=== PATIENT | female | born 1960 | race Caucasian/White ===

== ENCOUNTER 2025-01-08 08:45 | Outpatient (RCR) | payer MEDICARE, BC, SELFPAY ==
--- NOTE | 2024-07-12 13:15 | URNOTE ---
Request received for authorization for Cisplatin (J9060) , Emend (J1453), Aloxi (J2469). Prior authorization is not required pt carries Medicare primary and active [employer] [place] plan services are based on medical necessity and follow Medicare guidelines.
[2024-07-16 08:25] LABS: Hematocrit 43.6 % (33.0-51.0); Hemoglobin* 14.1 gm/dL (12.0-16.0); Immature Granulocytes Pct Auto 0.2 %; Mean Corpuscular HGB Conc 32 gm/dL (32-36); Mean Corpuscular Hemoglobin 32 pg (26-34); Mean Corpuscular Volume 97 fL (80-100); RDW Coefficient of Variation % 15.8 % (11.5-15.5); Red Blood Count 4.48 m/uL (4.00-5.20); White Blood Count* 11.50 K/uL (4.50-11.00)
[2024-07-16 08:32] LABS: Immature Granulocytes Abs Auto 0.00 K/uL (0.00-0.30); Lymphocytes Absolute Auto 1.30 K/uL (0.90-2.90); Slide Review Reflex No
[2024-07-16 08:37] LABS: Albumin* 4.3 g/dL (3.3-5.0); Chloride* 103 mmol/L (96-114)
[2024-07-16 08:38] LABS: Potassium* 4.1 mmol/L (3.6-5.1); Sodium* 139 mmol/L (135-149)
[2024-07-16 08:40] LABS: Alanine Aminotransferase* 34 U/L (4-35); Alkaline Phosphatase* 33 U/L (40-150); Anion Gap 7 mEq/L (7-15); Aspartate Amino Transferase* 32 U/L (12-35); Bilirubin Total* 0.8 mg/dL (0.1-1.5); Blood Urea Nitrogen* 28 mg/dL (7-30); Calcium* 10.2 mg/dL (8.4-10.6); Carbon Dioxide* 29 mmol/L (20-32); Creatinine* 0.4 mg/dL (0.5-1.5); Est. Creatinine Clearance* 45.78; Estimated Glomerular Filt Rate 110 ml/min; Glucose* 97 mg/dL (60-115); Total Protein* 6.5 g/dL (6.0-8.3)
[2024-07-16 09:42] LABS: TSH With Reflex to FT4* 1.400 uIU/mL (0.270-4.200)
[2024-07-16 10:13] VITALS: BP 140/85; PULSE 98; RESP 16; TEMP 35.9; O2SAT 94
[2024-07-16] MEDS: FOSAPREPITANT 150 MG inj 150 MG in 0.9 % SODIUM CHLORIDE 250 ml 250 ML 510 MG IVPB (11:16)
[2024-07-16] MEDS: MAGNESIUM SULFATE 2 GM, POTASSIUM CHLORIDE 10 MEQ in 0.9 % SODIUM CHLORIDE 1000 ml 1,00... IV (11:52)
[2024-07-16] MEDS: CISPLATIN IV (12:56)
[2024-07-16] MEDS: TUBING SECONDARY IV (12:56)
[2024-07-16] MEDS: SODIUM CHLORIDE 0.9% IV (12:56)
--- NOTE | 2024-07-17 09:47 | ONC.NURNOTE ---
Addendum entered by Cait Sanchez RN 07/17/24 10:25: reports confusion in names of medication compazine and prochlorperazine which she states was distressing she has been taking the prochlorperazine as directed and has not had any nausea eating and drinking per her baseline offers no further questions has our phone number to call if any change or concerns Original Note: new chemotherapy start follow up call message left on voice mail to call
[2024-07-23 09:06] LABS: Hematocrit 43.2 % (33.0-51.0); Hemoglobin* 13.7 gm/dL (12.0-16.0); Immature Granulocytes Abs Auto 0.02 K/uL (0.00-0.30); Immature Granulocytes Pct Auto 0.3 %; Mean Corpuscular HGB Conc 32 gm/dL (32-36); Mean Corpuscular Hemoglobin 31 pg (26-34); Mean Corpuscular Volume 99 fL (80-100); RDW Coefficient of Variation % 16.0 % (11.5-15.5); Red Blood Count 4.36 m/uL (4.00-5.20); White Blood Count* 7.98 K/uL (4.50-11.00)
[2024-07-23 09:10] LABS: Lymphocytes Absolute Auto 0.80 K/uL (0.90-2.90); Slide Review Reflex No
[2024-07-23 09:17] LABS: Albumin* 4.3 g/dL (3.3-5.0); Chloride* 108 mmol/L (96-114); Sodium* 143 mmol/L (135-149)
[2024-07-23 09:18] LABS: Potassium* 3.9 mmol/L (3.6-5.1)
[2024-07-23 09:20] LABS: Alkaline Phosphatase* 38 U/L (40-150); Anion Gap 6 mEq/L (7-15); Aspartate Amino Transferase* 20 U/L (12-35); Bilirubin Total* 0.5 mg/dL (0.1-1.5); Blood Urea Nitrogen* 49 mg/dL (7-30); Carbon Dioxide* 29 mmol/L (20-32); Creatinine* 0.5 mg/dL (0.5-1.5); Est. Creatinine Clearance* 46.39; Estimated Glomerular Filt Rate 104 ml/min; Glucose* 115 mg/dL (60-115); Total Protein* 6.4 g/dL (6.0-8.3)
[2024-07-23 09:21] LABS: Alanine Aminotransferase* 24 U/L (4-35); Calcium* 10.1 mg/dL (8.4-10.6)
[2024-07-23] MEDS: ACETAMINOPHEN 500 MG TABLET 1000 MG PO (10:00)
[2024-07-23 10:08] VITALS: BP 150/85; PULSE 106; RESP 16; TEMP 36.3; O2SAT 97
[2024-07-23] MEDS: MAGNESIUM SULFATE 2 GM, POTASSIUM CHLORIDE 10 MEQ in 0.9 % SODIUM CHLORIDE 1000 ml 1,00... IV (11:20)
--- NOTE | 2024-07-23 11:53 | ONC.NURNOTE ---
Silva has been dealing with RA pain. She has been connecting with Dr. Beard at [facility] often. Silva states she feels to wound up on Prednisone 20mg daily. So decreased to 10mg daily. Then increased back to 20mg a day due to increase arthritic pain. did not take Prednisone today or yest. Re: THroat pain states is has increased. no sores. Enc Silva to let [facility] know whom she gets treated daily.. She is aware she may need better pain control with meds, even narcotics. She is going to buy OTC spray and lozenges. is drinking protein rich fluids and tolerating well. takes tylenol daily and request it this am for throat discomfort. Discussed with Jody Ji APRN. Pt given tylenol 100omg with relief. She swallows the tylenol tablets well. Silva states heart burn is much improved with Zofran. She also states Zofran works better for her for Nausea than Compazine. States she has enough Zofran at home. RE: constipation. She states is using mag sulfate daily and having daily isidro like BM.
[2024-07-23] MEDS: FOSAPREPITANT 150 MG inj 150 MG in 0.9 % SODIUM CHLORIDE 250 ml 250 ML 510 MG IVPB (12:28)
[2024-07-23] MEDS: CISPLATIN IV (13:13)
[2024-07-23] MEDS: SODIUM CHLORIDE 0.9% IV (13:13)
[2024-07-23] MEDS: TUBING SECONDARY IV (13:13)
[2024-07-23] MEDS: SENNOSIDES 1 TAB TABLET 2 TAB PO (13:58)
--- NOTE | 2024-07-24 14:39 | ONC.NURNOTE ---
Rehab referral requested for head and neck cancer and deconditioning. This was discussed with patient at [facility], but she was feeling overwhelmed with appointments at that time.
[2024-07-30 09:43] LABS: Hematocrit 43.5 % (33.0-51.0); Hemoglobin* 14.1 gm/dL (12.0-16.0); Immature Granulocytes Abs Auto 0.02 K/uL (0.00-0.30); Immature Granulocytes Pct Auto 0.3 %; Mean Corpuscular HGB Conc 32 gm/dL (32-36); Mean Corpuscular Hemoglobin 32 pg (26-34); Mean Corpuscular Volume 99 fL (80-100); RDW Coefficient of Variation % 16.2 % (11.5-15.5); Red Blood Count 4.41 m/uL (4.00-5.20); White Blood Count* 7.51 K/uL (4.50-11.00)
[2024-07-30 09:50] LABS: Lymphocytes Absolute Auto 0.60 K/uL (0.90-2.90); Slide Review Reflex No
[2024-07-30 10:01] LABS: Albumin* 4.3 g/dL (3.3-5.0); Chloride* 102 mmol/L (96-114)
[2024-07-30 10:02] LABS: Potassium* 3.6 mmol/L (3.6-5.1); Sodium* 142 mmol/L (135-149)
[2024-07-30 10:04] LABS: Alanine Aminotransferase* 29 U/L (4-35); Alkaline Phosphatase* 50 U/L (40-150); Anion Gap 8 mEq/L (7-15); Aspartate Amino Transferase* 22 U/L (12-35); Bilirubin Total* 0.6 mg/dL (0.1-1.5); Blood Urea Nitrogen* 41 mg/dL (7-30); Carbon Dioxide* 32 mmol/L (20-32); Creatinine* 0.5 mg/dL (0.5-1.5); Est. Creatinine Clearance* 43.95; Estimated Glomerular Filt Rate 104 ml/min; Total Protein* 6.5 g/dL (6.0-8.3)
[2024-07-30 10:05] LABS: Calcium* 9.8 mg/dL (8.4-10.6); Glucose* 111 mg/dL (60-115)
[2024-07-30 10:35] LABS: TSH With Reflex to FT4* 0.382 uIU/mL (0.270-4.200)
[2024-07-30] MEDS: OXYCODONE 1 MG/ML ORAL SOLN 5 MG PO (11:23)
[2024-07-30] MEDS: FOSAPREPITANT 150 MG inj 150 MG in 0.9 % SODIUM CHLORIDE 250 ml 250 ML 510 MG IVPB (11:42)
[2024-07-30] MEDS: MAGNESIUM SULFATE 2 GM, POTASSIUM CHLORIDE 10 MEQ in 0.9 % SODIUM CHLORIDE 1000 ml 1,00... IV (12:17)
[2024-07-30] MEDS: CISPLATIN IV (13:22)
[2024-07-30] MEDS: SODIUM CHLORIDE 0.9% IV (13:22)
[2024-07-30] MEDS: TUBING SECONDARY IV (13:22)
[2024-08-06 08:50] LABS: Hematocrit 43.0 % (33.0-51.0); Hemoglobin* 14.2 gm/dL (12.0-16.0); Immature Granulocytes Abs Auto 0.01 K/uL (0.00-0.30); Immature Granulocytes Pct Auto 0.2 %; Mean Corpuscular HGB Conc 33 gm/dL (32-36); Mean Corpuscular Hemoglobin 32 pg (26-34); Mean Corpuscular Volume 97 fL (80-100); RDW Coefficient of Variation % 15.6 % (11.5-15.5); Red Blood Count 4.45 m/uL (4.00-5.20); White Blood Count* 5.70 K/uL (4.50-11.00)
[2024-08-06 08:57] LABS: Lymphocytes Absolute Auto 0.30 K/uL (0.90-2.90); Slide Review Reflex No
[2024-08-06 09:02] LABS: Albumin* 4.3 g/dL (3.3-5.0); Chloride* 94 mmol/L (96-114); Sodium* 136 mmol/L (135-149)
[2024-08-06 09:03] LABS: Potassium* 4.0 mmol/L (3.6-5.1)
[2024-08-06 09:04] VITALS: BP 116/78; PULSE 95; RESP 16; TEMP 36.4; O2SAT 94
[2024-08-06 09:05] LABS: Alanine Aminotransferase* 29 U/L (4-35); Alkaline Phosphatase* 61 U/L (40-150); Anion Gap 5 mEq/L (7-15); Aspartate Amino Transferase* 23 U/L (12-35); Bilirubin Total* 0.8 mg/dL (0.1-1.5); Blood Urea Nitrogen* 25 mg/dL (7-30); Carbon Dioxide* 37 mmol/L (20-32); Creatinine* 0.5 mg/dL (0.5-1.5); Est. Creatinine Clearance* 43.95; Estimated Glomerular Filt Rate 104 ml/min; Glucose* 108 mg/dL (60-115); Total Protein* 6.7 g/dL (6.0-8.3)
[2024-08-06 09:06] LABS: Calcium* 10.3 mg/dL (8.4-10.6)
[2024-08-06] MEDS: MAGNESIUM SULFATE 2 GM, POTASSIUM CHLORIDE 10 MEQ in 0.9 % SODIUM CHLORIDE 1000 ml 1,00... IV (10:01)
[2024-08-06] MEDS: FOSAPREPITANT 150 MG inj 150 MG in 0.9 % SODIUM CHLORIDE 250 ml 250 ML 510 MG IVPB (11:00)
[2024-08-06] MEDS: SODIUM CHLORIDE 0.9% IV (11:45)
[2024-08-06] MEDS: CISPLATIN IV (11:45)
[2024-08-06] MEDS: TUBING SECONDARY IV (11:45)
[2024-08-06] MEDS: SODIUM CHLORIDE 0.9 % (FLUSH) 10 ML SYRINGE IVF (14:30)
[2024-08-13 08:42] LABS: Hematocrit 38.8 % (33.0-51.0); Hemoglobin* 12.5 gm/dL (12.0-16.0); Immature Granulocytes Abs Auto 0.01 K/uL (0.00-0.30); Immature Granulocytes Pct Auto 0.2 %; Mean Corpuscular HGB Conc 32 gm/dL (32-36); Mean Corpuscular Hemoglobin 33 pg (26-34); Mean Corpuscular Volume 101 fL (80-100); RDW Coefficient of Variation % 15.8 % (11.5-15.5); Red Blood Count 3.85 m/uL (4.00-5.20); White Blood Count* 4.88 K/uL (4.50-11.00)
[2024-08-13 08:50] LABS: Lymphocytes Absolute Auto 0.40 K/uL (0.90-2.90)
[2024-08-13 08:51] LABS: Slide Review Reflex No
[2024-08-13 08:56] VITALS: BP 103/69; PULSE 107; RESP 16; TEMP 36.5; O2SAT 94
[2024-08-13 08:59] LABS: Albumin* 4.0 g/dL (3.3-5.0)
[2024-08-13 09:00] LABS: Chloride* 96 mmol/L (96-114); Potassium* 3.1 mmol/L (3.6-5.1); Sodium* 140 mmol/L (135-149)
[2024-08-13 09:02] LABS: Anion Gap 6 mEq/L (7-15); Aspartate Amino Transferase* 24 U/L (12-35); Bilirubin Total* 0.4 mg/dL (0.1-1.5); Blood Urea Nitrogen* 24 mg/dL (7-30); Carbon Dioxide* 38 mmol/L (20-32); Creatinine* 0.6 mg/dL (0.5-1.5); Est. Creatinine Clearance* 43.01; Estimated Glomerular Filt Rate 100 ml/min
[2024-08-13 09:03] LABS: Alanine Aminotransferase* 25 U/L (4-35); Alkaline Phosphatase* 48 U/L (40-150); Calcium* 9.8 mg/dL (8.4-10.6); Glucose* 99 mg/dL (60-115); Total Protein* 6.2 g/dL (6.0-8.3)
[2024-08-13] MEDS: SODIUM CHLORIDE 0.9 % (FLUSH) 10 ML SYRINGE IVF (09:30)
[2024-08-13 10:19] LABS: TSH With Reflex to FT4* 0.540 uIU/mL (0.270-4.200)
[2024-08-13] MEDS: FOSAPREPITANT 150 MG inj 150 MG in 0.9 % SODIUM CHLORIDE 250 ml 250 ML 510 MG IVPB (10:41)
[2024-08-13] MEDS: MAGNESIUM SULFATE 2 GM, POTASSIUM CHLORIDE 20 MEQ in 0.9 % SODIUM CHLORIDE 1000 ml 1,00... IV (11:20)
[2024-08-13] MEDS: CISPLATIN IV (12:23)
[2024-08-13] MEDS: SODIUM CHLORIDE 0.9% IV (12:23)
[2024-08-13] MEDS: TUBING SECONDARY IV (12:23)
[2024-08-20 08:43] LABS: Hematocrit 38.5 % (33.0-51.0); Hemoglobin* 12.6 gm/dL (12.0-16.0); Immature Granulocytes Abs Auto 0.00 K/uL (0.00-0.30); Immature Granulocytes Pct Auto 0.0 %; Mean Corpuscular HGB Conc 33 gm/dL (32-36); Mean Corpuscular Hemoglobin 33 pg (26-34); Mean Corpuscular Volume 101 fL (80-100); RDW Coefficient of Variation % 16.1 % (11.5-15.5); Red Blood Count 3.82 m/uL (4.00-5.20); White Blood Count* 3.39 K/uL (4.50-11.00)
[2024-08-20 08:50] LABS: Lymphocytes Absolute Auto 0.20 K/uL (0.90-2.90); Slide Review Reflex No
[2024-08-20 08:51] VITALS: BP 121/80; PULSE 102; RESP 16; TEMP 36.4; O2SAT 97
[2024-08-20 09:01] LABS: Albumin* 4.1 g/dL (3.3-5.0); Chloride* 94 mmol/L (96-114); Potassium* 3.5 mmol/L (3.6-5.1); Sodium* 136 mmol/L (135-149)
[2024-08-20 09:03] LABS: Blood Urea Nitrogen* 28 mg/dL (7-30); Creatinine* 0.5 mg/dL (0.5-1.5); Est. Creatinine Clearance* 42.61; Estimated Glomerular Filt Rate 104 ml/min
[2024-08-20 09:04] LABS: Alanine Aminotransferase* 25 U/L (4-35); Alkaline Phosphatase* 61 U/L (40-150); Anion Gap 6 mEq/L (7-15); Aspartate Amino Transferase* 28 U/L (12-35); Bilirubin Total* 0.7 mg/dL (0.1-1.5); Calcium* 9.5 mg/dL (8.4-10.6); Carbon Dioxide* 36 mmol/L (20-32); Glucose* 97 mg/dL (60-115); Total Protein* 6.5 g/dL (6.0-8.3)
[2024-08-20] MEDS: FOSAPREPITANT 150 MG inj 150 MG in 0.9 % SODIUM CHLORIDE 250 ml 250 ML 510 MG IVPB (10:10)
[2024-08-20] MEDS: MAGNESIUM SULFATE 2 GM, POTASSIUM CHLORIDE 10 MEQ in 0.9 % SODIUM CHLORIDE 1000 ml 1,00... IV (10:44)
[2024-08-20] MEDS: CISPLATIN IV (11:48)
[2024-08-20] MEDS: SODIUM CHLORIDE 0.9% IV (11:48)
[2024-08-20] MEDS: TUBING SECONDARY IV (11:48)
[2024-09-06 10:11] LABS: Chloride* 97 mmol/L (96-114); Potassium* 4.3 mmol/L (3.6-5.1); Sodium* 138 mmol/L (135-149)
[2024-09-06 10:13] LABS: Blood Urea Nitrogen* 37 mg/dL (7-30); Creatinine* 0.5 mg/dL (0.5-1.5); Est. Creatinine Clearance* 42.61; Estimated Glomerular Filt Rate 104 ml/min
[2024-09-06 10:14] LABS: Anion Gap 3 mEq/L (7-15); Calcium* 9.8 mg/dL (8.4-10.6); Carbon Dioxide* 38 mmol/L (20-32); Glucose* 123 mg/dL (60-115)
--- NOTE | 2024-09-06 15:49 | ONC.NURNOTE ---
Reviewed BMP and MG with Kelly Phillips PA-C; labs are stable. Updated pt. She notes she feels she is turning a corner with the pain and is feeling better on the current pain medicine regimen. She will call [facility] if additional concerns.
[2024-12-27 11:28] LABS: Hematocrit 41.8 % (33.0-51.0); Hemoglobin* 13.3 gm/dL (12.0-16.0); Immature Granulocytes Abs Auto 0.00 K/uL (0.00-0.30); Immature Granulocytes Pct Auto 0.0 %; Mean Corpuscular HGB Conc 32 gm/dL (32-36); Mean Corpuscular Hemoglobin 30 pg (26-34); Mean Corpuscular Volume 96 fL (80-100); RDW Coefficient of Variation % 14.1 % (11.5-15.5); Red Blood Count 4.37 m/uL (4.00-5.20); White Blood Count* 8.43 K/uL (4.50-11.00)
[2024-12-27 11:29] LABS: Lymphocytes Absolute Auto 0.30 K/uL (0.90-2.90); Slide Review Reflex No
[2024-12-27 11:44] LABS: Albumin* 4.0 g/dL (3.3-5.0); Chloride* 100 mmol/L (96-114); Potassium* 3.9 mmol/L (3.6-5.1); Sodium* 137 mmol/L (135-149)
[2024-12-27 11:47] LABS: Alanine Aminotransferase* 17 U/L (4-35); Alkaline Phosphatase* 52 U/L (40-150); Anion Gap 3 mEq/L (7-15); Aspartate Amino Transferase* 27 U/L (12-35); Bilirubin Total* 0.6 mg/dL (0.1-1.5); Blood Urea Nitrogen* 20 mg/dL (7-30); Calcium* 9.4 mg/dL (8.4-10.6); Carbon Dioxide* 34 mmol/L (20-32); Creatinine* 0.5 mg/dL (0.5-1.5); Est. Creatinine Clearance* 40.54; Estimated Glomerular Filt Rate 103 ml/min; Glucose* 91 mg/dL (60-115); Total Protein* 6.9 g/dL (6.0-8.3)
[2025-01-01 09:02] VITALS: BP 134/84; PULSE 78; TEMP 36.8; O2SAT 94
[2025-01-01] MEDS: ONDANSETRON 2 MG/ML inj 8 MG IVP (11:06)
[2025-01-01] MEDS: diphenhydrAMINE 50 MG in 0.9 % SODIUM CHLORIDE 100 ml 100 ML 404 MG IVPB (11:06)
[2025-01-01] MEDS: NIVOLUMAB 240 MG, TUBING PRIMARY 1 EACH, In-line 0.2 micron filter set 1 EACH in 0.9 % ... 248 MG IVPB (11:50)
[2025-01-01] MEDS: [UNRECOGNIZED DRUG - OTHER] IV (12:32)
[2025-01-01] MEDS: CETUXIMAB IV (12:32)
[2025-01-01] MEDS: TUBING PRIMARY IV (12:32)
[2025-01-01] MEDS: MICRON FILTER SET IV (12:32)
[2025-01-01] MEDS: IN LINE IV (12:32)
--- NOTE | 2025-01-01 14:12 | ONC.NURNOTE ---
Jed reports emotional distress upon arrival today. States she slept poorly last night and is overwhelmed with medical appointments,and medical information. States she knows she needs this treatment but is not sure she wants to continue on. Reports that she has no energy for activity during the day, most of her time is spent sitting in a chair, all her caloric intake is through her [employer]. She wants to cancel her inperson visit with palliative care, she needs a ride and is tired of securing transportation for medical appts, pharmacy pick and shovel worker, all errands. Reports feeling very out of sorts today. Discussed the option to take a pause on starting treatment today. Transportation Maintenance Operator called palliative care about changing appt to virtual because of transprotation. Friend Sunshine said she will take Silva to [place] tomorrow. Virtual appt is not an option per palliative care. Silva states that she needs to start treatment as she fully understands that her disease will progress without this treatment. Brief overview of schedule and treatment side effects reviewed. Handouts given on Optivo and Cetuximab. Handouts reviewed on self care at home, fatigue and copies provided for Silva. Questions addressed and consents, PIPPA all signed Silva declined PSDS today due to her high level of stress today. Friend Sunshine supportive and affirming today with Silva
--- NOTE | 2025-01-02 16:07 | ONC.NURNOTE ---
Left message with pt to see how she was feeling today after her 1st cetuximab and opdivo yesterday. Instructed pt to call if she has any questions or concerns.
[2025-01-08 08:49] VITALS: BP 115/75; PULSE 85; RESP 14; TEMP 36.7; O2SAT 98
[2025-01-08 08:56] LABS: Hematocrit 43.0 % (33.0-51.0); Hemoglobin* 13.7 gm/dL (12.0-16.0); Immature Granulocytes Abs Auto 0.01 K/uL (0.00-0.30); Immature Granulocytes Pct Auto 0.1 %; Mean Corpuscular HGB Conc 32 gm/dL (32-36); Mean Corpuscular Hemoglobin 30 pg (26-34); Mean Corpuscular Volume 95 fL (80-100); RDW Coefficient of Variation % 14.4 % (11.5-15.5); Red Blood Count 4.51 m/uL (4.00-5.20); White Blood Count* 8.09 K/uL (4.50-11.00)
[2025-01-08 08:58] LABS: Lymphocytes Absolute Auto 0.30 K/uL (0.90-2.90)
[2025-01-08 08:59] LABS: Slide Review Reflex No
[2025-01-08 09:11] LABS: Albumin* 4.1 g/dL (3.3-5.0); Chloride* 100 mmol/L (96-114); Sodium* 140 mmol/L (135-149)
[2025-01-08 09:12] LABS: Potassium* 3.3 mmol/L (3.6-5.1)
[2025-01-08 09:14] LABS: Alanine Aminotransferase* 25 U/L (4-35); Alkaline Phosphatase* 54 U/L (40-150); Anion Gap 7 mEq/L (7-15); Aspartate Amino Transferase* 31 U/L (12-35); Bilirubin Total* 0.6 mg/dL (0.1-1.5); Blood Urea Nitrogen* 16 mg/dL (7-30); Calcium* 9.8 mg/dL (8.4-10.6); Carbon Dioxide* 33 mmol/L (20-32); Creatinine* 0.6 mg/dL (0.5-1.5); Est. Creatinine Clearance* 41.37; Estimated Glomerular Filt Rate 99 ml/min; Glucose* 85 mg/dL (60-115); Total Protein* 7.2 g/dL (6.0-8.3)
[2025-01-08] MEDS: SODIUM CHLORIDE 0.9 % (FLUSH) 10 ML SYRINGE IVF (10:16)
[2025-01-08] MEDS: ONDANSETRON 2 MG/ML inj 8 MG IVP (10:17)
[2025-01-08] MEDS: diphenhydrAMINE 25 MG in 0.9 % SODIUM CHLORIDE 100 ml 100 ML 402 MG IVPB (10:21)
[2025-01-08] MEDS: MICRON FILTER SET IV (11:28)
[2025-01-08] MEDS: [UNRECOGNIZED DRUG - OTHER] IV (11:28)
[2025-01-08] MEDS: CETUXIMAB IV (11:28)
[2025-01-08] MEDS: TUBING PRIMARY IV (11:28)
[2025-01-08] MEDS: IN LINE IV (11:28)
== END 2025-01-08 23:59 | disposition home or self-care (01) ==
LOC: CCIC 08:45
PROVIDERS: Internal Medicine Hematology & Oncology; Physician Assistant; Visit Provider Clinical Nurse Specialist
DX: Z51.12 Encounter for antineoplastic immunotherapy (principal); C06.9 Malignant neoplasm of mouth, unspecified; M06.9 Rheumatoid arthritis, unspecified; Z79.899 Other long term (current) drug therapy
CPT/HCPCS: 36415; 80048; 80053; 83735; 84100; 84443; 85025; 96361; 96367; 96375; 96413; 96415; 96417; 99202; 99204; 99211; 99213; 99214; 99215; G0463; A9270; J1100; J1200; J1453; J2405; J2469; J3475; J3480; J7030; J7050; J9055; J9060; J9299